=== PATIENT | female | born 1970 | race Caucasian/White ===

== ENCOUNTER 2016-07-29 10:32 | Observation (INO) | payer OTHER ==
[2016-07-29 11:07] LABS: COLOR YELLOW; LEUKOCYTE ESTERASE,URINE NEGATIVE (NEGATIVE); NITRITE,URINE NEGATIVE (NEGATIVE)
[2016-07-29] MEDS ORDERED: ONDANSETRON 4 MG/2 ML VIAL IVP ONE (11:11)
[2016-07-29] MEDS ORDERED: NS 1,000 ML IV ONE (11:11)
[2016-07-29] MEDS ORDERED: HYDROmorphONE/DILAUDID 1 MG/ML SYR IVP ONE ×2 (11:11→13:21)
[2016-07-29 11:17] LABS: BACTERIA 2+ /hpf (NONE SEEN); MUCUS 1+ /lpf (NONE-1+)
--- NOTE | 2016-07-29 11:17 | UCPHY ---
H & P Time Seen by Provider: 07/29/16 11:03 Patient Type: Established HPI/ROS: HPI Right flank pain. 45-year-old female by private vehicle. History of kidney stones. She reports she recently had a large right-sided ureteral stone. She underwent lithotripsy on July 08 and stent placement. She then had the stent removed on July 19. She reports that she has been passing a lot of kidney stone debris in her urine since the stent removal. She reports that she has been prescribed oxycodone for intermittent pain which she describes as coming on in waves. She reports however that since last night she has not been able to urinate well in her right flank pain with radiation to the right lower quadrant has been substantially worse. Her care has been through [facility]. ROS: Constitutional: No fever, no chills. No weakness. Eyes: No discharge. No changes in vision. ENT: No sore throat. No nasal congestion or rhinorrhea. Respiratory: No cough. No shortness of breath. Cardiac: No chest pain, no palpitations. Gastrointestinal: No as above, no vomiting, no diarrhea. Genitourinary: No hematuria. No dysuria or increased frequency with urination. Musculoskeletal: As above. No neck pain. No myalgias or arthralgias. Skin: No rashes. Neurological: No headache. No focal weakness or altered sensation. Past medical history: Kidney stones. As above. Social history: Here by herself. Physical Exam: General Appearance: Alert, she appears uncomfortable. This patient is responding to questions appropriately and in full sentences. This patient appears well-hydrated and well-nourished. Eyes: Pupils equal and round no pallor or injection. No lid edema, erythema or injection. Respiratory: There are no retractions, lungs are clear to auscultation with good air movement bilaterally. Cardiovascular: Regular rate and rhythm. No murmur. Gastrointestinal: Abdomen is soft with mild and vague right lower quadrant tenderness on palpation, no masses, bowel sounds normal. No focal tenderness at McBurney's point. No Snyder sign. Neurological: Motor sensory function is grossly intact. Cranial nerves are normal. Gait is normal. Skin: Warm and dry, no rashes. Musculoskeletal: Vague right-sided CVA tenderness on palpation. No left-sided CVA tenderness on palpation. Extremities are symmetrical. All joints range without pain or impingement. Psychiatric: No agitation. No depression. Database: EKG: Imaging: CT scan of the abdomen and pelvis without contrast: Significant for a 3 mm x 5 mm x 5 mm distal right ureteral stone at the UVJ. She has severe hydroureter and hydronephrosis with perinephric fluid and nephromegaly. Results were discussed with staff radiologist Dr. Tyson Thomson. Procedures: Emergency department course: IV placed. She was placed on a monitor. She was started on IV normal saline with 1 L to be given over the next hour. She was initially given 0.5 mg of IV hydromorphone and 4 mg of IV Zofran. He will be sent for noncontrast CT scan of the abdomen and pelvis to evaluate for new ureterolithiasis as, significant hydronephrosis as well as possible appendicitis. She endorses. The patient has required multiple doses of IV hydromorphone for pain control during her Urgent Care evaluation. 12:40 p.m. she was re-evaluated. She is asking for another dose of pain medication. Results of CT scan discussed with her. I will admit her to the hospitalist service and get in touch with her urologist to consult. 1:30 p.m., spoke with hospitalist, Dr. Bety Mitchell, patient accepted for admission. Urology has been paged. 1:35 p.m., spoke with on-call [facility], Dr. Makayla Ford. Case discussed in detail. He pulled her record. Here 1 of his partners will consult on this patient for management of this distal right-sided ureteral stone. 1:40 p.m., plan discussed with the patient and friend who was in the room. She does not want to go by ambulance. I think this is reasonable. Her friend will drive her over to [facility] where she will be admitted on arrival. Differential Diagnosis: The differential diagnosis on this patient includes but is not limited to ureterolithiasis, pyelonephritis, urinary tract infection, appendicitis. This represents a partial list of diagnoses considered. These considerations are based on history, physical exam, past history, reassessment and diagnostic testing. Smoking Status: Current every day smoker Constitutional: Initial Vital Signs Temperature (C) 36.4 C 07/29/16 10:48 Heart Rate 80 07/29/16 10:48 Respiratory Rate 16 07/29/16 10:48 Blood Pressure 126/78 H 07/29/16 10:48 O2 Sat (%) 96 07/29/16 10:48 O2 Delivery Mode Room Air Allergies/Adverse Reactions: Tetracyclines Allergy (Verified 07/29/16 10:47) Home Medications: Medication Instructions Recorded Percocet 5-325 mg Tablet 07/29/16 Xanax 07/29/16 Medical Decision Making - Data Points Laboratory Results: Laboratory Results 07/29/16 11:55 07/29/16 11:55 07/29/16 07/29/16 07/29/16 11:55 11:55 11:00 WBC 13.18 10^3/uL H 10^3/uL (3.80-9.50) RBC 4.45 10^6/uL 10^6/uL (4.18-5.33) Hgb 13.9 g/dL g/dL (12.6-16.3) Hct 41.0 % % (38.0-47.0) MCV 92.1 fL fL (81.5-99.8) MCH 31.2 pg pg (27.9-34.1) MCHC 33.9 g/dL g/dL (32.4-36.7) RDW 12.1 % % (11.5-15.2) Plt Count 291 10^3/uL 10^3/uL (150-400) MPV 10.5 fL fL (8.7-11.7) Neut % (Auto) 81.8 % H % (39.3-74.2) Lymph % (Auto) 11.9 % L % (15.0-45.0) Carver % (Auto) 5.2 % % (4.5-13.0) Eos % (Auto) 0.2 % L % (0.6-7.6) Baso % (Auto) 0.5 % % (0.3-1.7) Nucleat RBC Rel Count 0.0 % % (0.0-0.2) Absolute Neuts (auto) 10.78 10^3/uL H 10^3/uL (1.70-6.50) Absolute Lymphs (auto) 1.57 10^3/uL 10^3/uL (1.00-3.00) Absolute Monos (auto) 0.69 10^3/uL 10^3/uL (0.30-0.80) Absolute Eos (auto) 0.02 10^3/uL L 10^3/uL (0.03-0.40) Absolute Basos (auto) 0.07 10^3/uL 10^3/uL (0.02-0.10) Absolute Nucleated RBC 0.00 10^3/uL 10^3/uL (0-0.01) Immature Gran % 0.4 % % (0.0-1.1) Immature Gran # 0.05 10^3/uL 10^3/uL (0.00-0.10) Sodium 140 mEq/L mEq/L (134-144) Potassium 4.1 mEq/L mEq/L (3.5-5.2) Chloride 100 mEq/L mEq/L (97-110) Carbon Dioxide 26 mEq/l mEq/l (22-31) Anion Gap 14 mEq/L mEq/L (8-16) BUN 16 mg/dL mg/dL (7-23) Creatinine 0.8 mg/dL mg/dL (0.6-1.0) Estimated GFR > 60 Glucose 105 mg/dL H mg/dL (70-100) Calcium 9.5 mg/dL mg/dL (8.5-10.4) Urine Color Urine Appearance Urine pH Ur Specific [place] Urine Protein Urine Ketones Urine Blood Urine Nitrate Urine Bilirubin Urine Urobilinogen Ur Leukocyte Esterase Urine RBC Urine WBC Ur Epithelial Cells Urine Bacteria Urine Mucus Ur Culture Indicated? Urine Glucose Urine Test NEGATIVE 07/29/16 11:00 WBC RBC Hgb Hct MCV MCH MCHC RDW Plt Count MPV Neut % (Auto) Lymph % (Auto) Carver % (Auto) Eos % (Auto) Baso % (Auto) Nucleat RBC Rel Count Absolute Neuts (auto) Absolute Lymphs (auto) Absolute Monos (auto) Absolute Eos (auto) Absolute Basos (auto) Absolute Nucleated RBC Immature Gran % Immature Gran # Sodium Potassium Chloride Carbon Dioxide Anion Gap BUN Creatinine Estimated GFR Glucose Calcium Urine Color YELLOW Urine Appearance CLEAR Urine pH 5.0 (5.0-7.5) Ur Specific [place] 1.025 (1.002-1.030) Urine Protein NEGATIVE (NEGATIVE) Urine Ketones NEGATIVE (NEGATIVE) Urine Blood 2+ H (NEGATIVE) Urine Nitrate NEGATIVE (NEGATIVE) Urine Bilirubin NEGATIVE (NEGATIVE) Urine Urobilinogen 0.2 EU EU (0.2-1.0) Ur Leukocyte Esterase NEGATIVE (NEGATIVE) Urine RBC 5-10 /hpf H /hpf (0-3) Urine WBC 5-10 /hpf H /hpf (0-3) Ur Epithelial Cells 2+ /lpf H /lpf (NONE-1+) Urine Bacteria 2+ /hpf H /hpf (NONE SEEN) Urine Mucus 1+ /lpf /lpf (NONE-1+) Ur Culture Indicated? INDICATED H (NI) Urine Glucose NEGATIVE (NEGATIVE) Urine Test Medications Given: Discontinued Medications Hydromorphone HCl (Dilaudid) 0.5 mg IVP EDNOW ONE Stop: 07/29/16 11:12 Last Admin: 07/29/16 11:51 Dose: 0.5 mg Hydromorphone HCl (Dilaudid) 0.5 mg IVP EDNOW ONE Stop: 07/29/16 13:22 Last Admin: 07/29/16 13:30 Dose: 0.5 mg Sodium Chloride (Ns) 1,000 mls @ 0 mls/hr IV ONCE ONE PRN Reason: Wide Open Stop: 07/29/16 11:12 Last Admin: 07/29/16 12:00 Dose: 1,000 mls Ondansetron HCl (Zofran) 4 mg IVP EDNOW ONE Stop: 07/29/16 11:12 Last Admin: 07/29/16 11:50 Dose: 4 mg Ondansetron HCl (Zofran) 4 mg IVP EDNOW ONE Stop: 07/29/16 13:36 Last Admin: 07/29/16 13:36 Dose: 4 mg Departure - Departure Disposition: Home, Routine, Self-Care Clinical Impression: Right flank pain, History of kidney stones, Right kidney stone with obstruction - PQRS PQRS Measurement: Not applicable.
[2016-07-29 12:00] LABS: % IMMATURE GRANULYOCYTES 0.4 % (0.0-1.1); ABSOLUTE IMMATURE GRANULOCYTES 0.05 10^3/uL (0.00-0.10); ADD DIFF? NO; ADD MORPH? NO; ADD SCAN? NO; ATYPICAL LYMPHOCYTE FLAG 0 (0-99); FRAGMENT RBC FLAG 0 (0-99); HEMOGLOBIN 13.9 g/dL (12.6-16.3); LEFT SHIFT FLG 0 (0-99); LIPEMIA HEMOLYSIS FLAG 90 (0-99); MEAN CELL HEMOGLOBIN 31.2 pg (27.9-34.1); MEAN CELL HEMOGLOBIN CONCENTR. 33.9 g/dL (32.4-36.7); MEAN CELL VOLUME 92.1 fL (81.5-99.8); MEAN PLATELET VOLUME 10.5 fL (8.7-11.7); PLATELET CLUMPS FLAG 10 (0-99); PLATELET COUNT 291 10^3/uL (150-400); RED BLOOD CELL COUNT 4.45 10^6/uL (4.18-5.33); RED CELL DISTRIBUTION WIDTH 12.1 % (11.5-15.2)
[2016-07-29 12:14] LABS: ANION GAP 14 mEq/L (8-16); CALCIUM 9.5 mg/dL (8.5-10.4); CARBON DIOXIDE 26 mEq/l (22-31); CHLORIDE 100 mEq/L (97-110); CREATININE 0.8 mg/dL (0.6-1.0); GLOMERULAR FILTRATION RATE > 60; GLUCOSE 105 mg/dL (70-100); POTASSIUM 4.1 mEq/L (3.5-5.2); SODIUM 140 mEq/L (134-144)
[2016-07-29] MEDS ORDERED: ONDANSETRON 4 MG/2 ML VIAL ONE (13:32)
[2016-07-29] MEDS: ONDANSETRON 4 MG/2 ML VIAL IVP ONE (13:36)
[2016-07-29] MEDS: NS 1,000 ML IV SCH ×2 (13:46→18:38)
--- NOTE | 2016-07-29 15:44 | PDGENHP ---
History and Physical - Chief Complaint RLQ and flank pain - History of Present Illness 45 yo female with h/o nephrolithiasis, s/p lithotripsy 07/08/2016 with stent placement and subsequent stent removal 06/2016, presented to urgent care with worsening right flank pain and RLQ pain. No fevers or chills. No N/V/D. She reports difficulty with urination since yesterday. In urgent care, CT revealed an obstructing distal right ureteral stone with severe upstream hydronephrosis. She received a total of 1 mg IV dilaudid and 2 doses of IV Zofran. She is admitted to the hospital for further management. History Information - Allergies/Home Medication List Allergies/Adverse Reactions: Tetracyclines Allergy (Verified 07/29/16 10:47) Home Medications: NK [No Known Home Meds] 07/29/16 [Last Taken Unknown] I have personally reviewed and updated: family history, medical history, social history, surgical history - Past Medical History Additional medical history: nephrolithiasis - Surgical History Additional surgical history: lithotripsy 07/08/2016 - Family History Positive for: non-pertinent - Social History Smoking Status: Current every day smoker Review of Systems ROS: 10pt was reviewed & negative except for what was stated in HPI & below Physical Exam Temp Pulse Resp BP Pulse Ox 36.4 C 63 16 112/80 94 07/29/16 10:48 07/29/16 14:45 07/29/16 14:45 07/29/16 14:45 07/29/16 14:45 Constitutional: no apparent distress Eyes: PERRL Ears, Nose, Mouth, Throat: moist mucous membranes Cardiovascular: regular rate and rhythym, no murmur, rub, or gallop Respiratory: no respiratory distress, clear to auscultation Gastrointestinal: normoactive bowel sounds, soft, non-tender abdomen Skin: warm Musculoskeletal: full muscle strength Neurologic: AAOx3 Psychiatric: interacting appropriately Lab Data & Imaging Review 07/29/16 11:55 07/29/16 11:55 WBC 13.18 10^3/uL (3.80-9.50) H 07/29/16 11:55 RBC 4.45 10^6/uL (4.18-5.33) 07/29/16 11:55 Hgb 13.9 g/dL (12.6-16.3) 07/29/16 11:55 Hct 41.0 % (38.0-47.0) 07/29/16 11:55 MCV 92.1 fL (81.5-99.8) 07/29/16 11:55 MCH 31.2 pg (27.9-34.1) 07/29/16 11:55 MCHC 33.9 g/dL (32.4-36.7) 07/29/16 11:55 RDW 12.1 % (11.5-15.2) 07/29/16 11:55 Plt Count 291 10^3/uL (150-400) 07/29/16 11:55 MPV 10.5 fL (8.7-11.7) 07/29/16 11:55 Neut % (Auto) 81.8 % (39.3-74.2) H 07/29/16 11:55 Lymph % (Auto) 11.9 % (15.0-45.0) L 07/29/16 11:55 Love % (Auto) 5.2 % (4.5-13.0) 07/29/16 11:55 Eos % (Auto) 0.2 % (0.6-7.6) L 07/29/16 11:55 Baso % (Auto) 0.5 % (0.3-1.7) 07/29/16 11:55 Nucleat RBC Rel Count 0.0 % (0.0-0.2) 07/29/16 11:55 Absolute Neuts (auto) 10.78 10^3/uL (1.70-6.50) H 07/29/16 11:55 Absolute Lymphs (auto) 1.57 10^3/uL (1.00-3.00) 07/29/16 11:55 Absolute Monos (auto) 0.69 10^3/uL (0.30-0.80) 07/29/16 11:55 Absolute Eos (auto) 0.02 10^3/uL (0.03-0.40) L 07/29/16 11:55 Absolute Basos (auto) 0.07 10^3/uL (0.02-0.10) 07/29/16 11:55 Absolute Nucleated RBC 0.00 10^3/uL (0-0.01) 07/29/16 11:55 Immature Gran % 0.4 % (0.0-1.1) 07/29/16 11:55 Immature Gran # 0.05 10^3/uL (0.00-0.10) 07/29/16 11:55 Sodium 140 mEq/L (134-144) 07/29/16 11:55 Potassium 4.1 mEq/L (3.5-5.2) 07/29/16 11:55 Chloride 100 mEq/L (97-110) 07/29/16 11:55 Carbon Dioxide 26 mEq/l (22-31) 07/29/16 11:55 Anion Gap 14 mEq/L (8-16) 07/29/16 11:55 BUN 16 mg/dL (7-23) 07/29/16 11:55 Creatinine 0.8 mg/dL (0.6-1.0) 07/29/16 11:55 Estimated GFR > 60 07/29/16 11:55 Glucose 105 mg/dL (70-100) H 07/29/16 11:55 Calcium 9.5 mg/dL (8.5-10.4) 07/29/16 11:55 Urine Color YELLOW 07/29/16 11:00 Urine Appearance CLEAR 07/29/16 11:00 Urine pH 5.0 (5.0-7.5) 07/29/16 11:00 Ur Specific [place] 1.025 (1.002-1.030) 07/29/16 11:00 Urine Protein NEGATIVE (NEGATIVE) 07/29/16 11:00 Urine Ketones NEGATIVE (NEGATIVE) 07/29/16 11:00 Urine Blood 2+ (NEGATIVE) H 07/29/16 11:00 Urine Nitrate NEGATIVE (NEGATIVE) 07/29/16 11:00 Urine Bilirubin NEGATIVE (NEGATIVE) 07/29/16 11:00 Urine Urobilinogen 0.2 EU (0.2-1.0) 07/29/16 11:00 Ur Leukocyte Esterase NEGATIVE (NEGATIVE) 07/29/16 11:00 Urine RBC 5-10 /hpf (0-3) H 07/29/16 11:00 Urine WBC 5-10 /hpf (0-3) H 07/29/16 11:00 Ur Epithelial Cells 2+ /lpf (NONE-1+) H 07/29/16 11:00 Urine Bacteria 2+ /hpf (NONE SEEN) H 07/29/16 11:00 Urine Mucus 1+ /lpf (NONE-1+) 07/29/16 11:00 Ur Culture Indicated? INDICATED (NI) H 07/29/16 11:00 Urine Glucose NEGATIVE (NEGATIVE) 07/29/16 11:00 Urine Test NEGATIVE 07/29/16 11:00 Assessment & Plan Assessment: Obstructing nephrolithiasis with severe right hydronephrosis - S/P prior lithotripsy 07/18 with stent removal on 07/19. No fevers, UA with minimal wbc's. Will watch closely and start atbx if she develops fevers or signs of infection. UCx pending. Urology is consulted, plans for intervention tomorrow. Will make NPO at midnight. Pain control in meantime. Full code Dispo - obs, may need to change to inpt should she develop infection or has post -op issues requiring extended hospitalization
--- NOTE | 2016-07-29 17:34 | SOAPPROG ---
SOAP Progress Note Assessment/Plan: Assessment: Right flank pain Acute History of kidney stones Acute Reviewed hx and CAT scan and noted right hydronephrosis and distal 3 x 5 mm stone. Plan for removal in AM. Pt to eat now and NPO past MN Plan:ureteroscopy in AM 07/29/16 17:34 Subjective: admitted with right hydronephrosis and distal stone Objective: Vital Signs Temp Pulse Resp BP Pulse Ox 36.6 C 62 16 116/75 99 07/29/16 16:18 07/29/16 16:18 07/29/16 16:18 07/29/16 16:18 07/29/16 16:18 07/28/16 07/29/16 07/30/16 05:59 05:59 05:59 Intake Total 1200 Balance 1200 Physical Exam - Physical Exam General Appearance: other (as per admit h and p, pt not seen -- discussed with RN caring for pt) ICD10 Worksheet Patient Problems: Problems Problem Status Onset Right flank pain Acute History of kidney stones Acute
[2016-07-29] MEDS ORDERED: ACETAMINOPHEN 325 MG TAB PO PRN (17:50)
[2016-07-29] MEDS ORDERED: ONDANSETRON 4 MG/2 ML VIAL IVP PRN (17:50)
[2016-07-29] MEDS ORDERED: PROMETHAZINE HCL 25 MG/ML INJ IVP PRN (17:50)
[2016-07-29] MEDS ORDERED: PROMETHAZINE HCL 25 MG TAB PO PRN (17:50)
[2016-07-29] MEDS ORDERED: ONDANSETRON DISINTEGRATING 4 MG TAB PO PRN (17:50)
[2016-07-29] MEDS ORDERED: HYDROmorphONE/DILAUDID 1 MG/ML SYR IVP PRN (17:50)
[2016-07-29] MEDS ORDERED: LORazepam 1 MG TAB PO PRN (17:52)
[2016-07-29] MEDS ORDERED: NICOTINE 14 MG/24 HR PATCH TD PRN (18:09)
[2016-07-29] MEDS: oxyCODONE IR 5 MG TAB PO PRN ×2 (18:21→22:32)
[2016-07-29] MEDS: TAMSULOSIN HCL 0.4 MG CAP PO SCH (18:22)
[2016-07-29] MEDS: KETOROLAC 30 MG/1 ML SDV IVP PRN (18:22)
[2016-07-30] MEDS ORDERED: NS 1,000 ML IV SCH (00:02)
[2016-07-30] MEDS: KETOROLAC 30 MG/1 ML SDV IVP PRN (05:14)
[2016-07-30 05:32] LABS: % IMMATURE GRANULYOCYTES 0.2 % (0.0-1.1); ABSOLUTE IMMATURE GRANULOCYTES 0.01 10^3/uL (0.00-0.10); ADD DIFF? NO; ADD MORPH? NO; ADD SCAN? NO; ATYPICAL LYMPHOCYTE FLAG 0 (0-99); FRAGMENT RBC FLAG 0 (0-99); HEMATOCRIT 36.5 % (38.0-47.0); HEMOGLOBIN 12.2 g/dL (12.6-16.3); LEFT SHIFT FLG 0 (0-99); LIPEMIA HEMOLYSIS FLAG 80 (0-99); MEAN CELL HEMOGLOBIN 31.4 pg (27.9-34.1); MEAN CELL HEMOGLOBIN CONCENTR. 33.4 g/dL (32.4-36.7); MEAN CELL VOLUME 94.1 fL (81.5-99.8); PLATELET CLUMPS FLAG 0 (0-99); PLATELET COUNT 216 10^3/uL (150-400); RED BLOOD CELL COUNT 3.88 10^6/uL (4.18-5.33); RED CELL DISTRIBUTION WIDTH 12.4 % (11.5-15.2)
[2016-07-30 05:53] LABS: ANION GAP 7 mEq/L (8-16); CALCIUM 8.8 mg/dL (8.5-10.4); CARBON DIOXIDE 24 mEq/l (22-31); CHLORIDE 108 mEq/L (97-110); CREATININE 0.8 mg/dL (0.6-1.0); GLOMERULAR FILTRATION RATE > 60; GLUCOSE 80 mg/dL (70-100); POTASSIUM 4.2 mEq/L (3.5-5.2); SODIUM 139 mEq/L (134-144)
[2016-07-30] MEDS ORDERED: LIDOCAINE 2% JELLY 20 ML (UROJECT) ONE (06:58)
[2016-07-30] MEDS ORDERED: IOPAMIDOL (ISOVUE-M 300) 15 ML VIAL IV ONE (06:59)
[2016-07-30] MEDS ORDERED: MIDAZOLAM 2 MG/2 ML VIAL ONE (07:29)
[2016-07-30] MEDS ORDERED: ceFAZolin 2 GM/DEXTROSE 100 ML IV ONE (07:30)
[2016-07-30] MEDS ORDERED: PROPOFOL 200 MG/20 ML VIAL ONE (07:40)
[2016-07-30] MEDS ORDERED: fentaNYL 100 MCG/2 ML INJ ONE (07:40)
--- NOTE | 2016-07-30 08:32 | POSTOPPROG ---
Post Op Note Date of Operation: 07/30/16 Surgeon: Jan Montes Anesthesiologist: Warm Anesthesia: LMA Pre-op Diagnosis: stone hydronephrosis dictated Inf/Abcess present in the surg proc area at time of surgery?: No Specimen(s): stone given to pt
--- NOTE | 2016-07-30 08:42 | GCON ---
I have been asked by Bety Mitchell, the admitting physician, to see this lady for a right ureteral c alculus and hydronephrosis. HISTORY OF PRESENT ILLNESS: This is a 45-year-old lady who recently underwent lithotripsy on 2016 and had a stent removed and then subsequently had pain but presented to the emergency room gina use of unrelenting flank pain and was admitted to the hospital for pain control. I have reviewed he r CAT scan. The CAT scan reveals a 3 x 5 mm stone in the distal ureter with upstream significant hy dronephrosis. She has been on Dilaudid and Zofran, and overnight she had less pain and discomfort. At the present time, she has been admitted for hydration and pain control; and after reviewing her CAT scan and discussing it with her, she is to undergo ureteroscopic removal of the calculus. ALLERGIES: She is allergic to tetracyclines. MEDICATIONS: No known medications. REVIEW OF SYSTEMS: Negative for cardiac, respiratory, GI, and endocrine. She is perimenopausal and has had altered changes in her menstrual cycle, and then she has had the right flank pain and being admitted for that. She has had no fever or chills. PHYSICAL EXAM: GENERAL: She is alert and oriented. NECK: She has a normal supple neck. LUNGS: Respirations unlabored. HEART: Regular rate and rhythm. ABDOMEN: No organomegaly, rebound, or gu arding. She does have the right flank pain and urgency to void. SKIN: Warm. MUSCULOSKELETAL: Fu ll muscle strength. NEUROLOGIC: Oriented x3, alert, and active. PSYCHIATRIC: Appropriate interac tion. LAB FINDINGS: Labs have been reviewed. She had a creatinine of 0.8, BUN of 16, glucose 105, sodium 140, potassium 4.1. ASSESSMENT AND PLAN: At the present time, she has been admitted and she is to undergo ureteroscopic removal of the calculus. I have discussed this with her, reviewed her x-rays, and there has been a total of 30 minutes in pre-assessment and patient interaction time for this visit. /[id number]/MODL
[2016-07-30 08:47] VITALS: BP 90/61
[2016-07-30 08:50] VITALS: PULSE 90; RESP 16; TEMP 97.9; O2SAT 94
--- NOTE | 2016-07-30 09:02 | GOP ---
DATE OF OPERATION: 07/29/2016 SURGEON: Jan Montes MD PREOPERATIVE DIAGNOSIS: Right ureteral stone with hydronephrosis. POSTOPERATIVE DIAGNOSIS: Right ureteral stone with hydronephrosis. PROCEDURE PERFORMED: Cystoscopy retrograde ureteral pyelogram, right, and ureteroscopic removal of calculus, and fluoroscopy with interpretation. FINDINGS: DESCRIPTION OF PROCEDURE: The patient underwent general anesthesia. After appropriate time-out, an d being prepped and draped in normal sterile fashion, the right ureter was cannulated with a Pollack catheter. Retrograde revealed the distal ureteral stone with hydronephrosis and hydroureter. I co uld pass the scope up to the stone and grasp it with a stone basket, and gently teased it out of the ureter, and then visualized the rest of the kidney and looked all the way up into the renal pelvis. No residual stones or trauma. At the patient's request to avoid a stent, we elected to do that. I had placed some Xylocaine up in the ureter with a Pollack catheter. I then placed a Uro-jet in th e bladder, after emptying the bladder. She tolerated the procedure well. She will be discharged ho nd, the have followup with me in the future. The stone will be given to her for viewing. /[id number]/MODL
[2016-07-30] MEDS: TAMSULOSIN HCL 0.4 MG CAP PO SCH (12:41)
--- NOTE | 2016-07-30 14:53 | GDS ---
STUDIES AND PROCEDURES DONE: 1. CT of the abdomen and pelvis. 2. Cystoscopy with ureteral pyelogram and removal of calculus. CONSULTATIONS: Dr. Montes of Urology. PHYSICAL EXAM: GENERAL: The patient is alert. VITAL SIGNS: Afebrile 36.6, pulse is 90, respirato ry rate 16, blood pressure is 90/61, she is saturating 94% on room air. I have seen and evaluated t he patient on the day of discharge. HOSPITAL COURSE: Ms. Rios is a 45-year-old female, who has a history of renal calculi. She prese nted to the emergency room with complaints of pain. She was evaluated and diagnosed with right uret eral calculi and hydronephrosis. During this hospitalization, she was evaluated by Dr. Montes. A cy stoscopy was performed and the removal of the calculus was completed. The patient has responded wel l in the postoperative setting. She is tolerating a regular diet. Her pain is controlled. She joann l be discharged home to follow up with Dr. Montes in the outpatient setting. There are no pending st udies. DISCHARGE MEDICATIONS: Please refer to EMR form. I have not provided the patient any prescriptions at the time of disposition. /[id number]/MODL
== END 2016-07-30 12:43 | disposition home or self-care (01) ==
LOC: CED 10:32 → INTOOBSV 13:31 → CEDHOLD 13:31 → F3N 17:03
PROVIDERS: ADMIT Hospitalist; ATTEND Hospitalist
PROC: 0TC68ZZ Extirpation of Matter from Right Ureter, Via Natural or Artificial Opening Endoscopic (ICD-10-PCS; principal; 2016-07-29)
DX: N13.1 Hydronephrosis with ureteral stricture, not elsewhere classified (principal); J44.9 Chronic obstructive pulmonary disease, unspecified; Z72.0 Tobacco use; Z87.442 Personal history of urinary calculi
CPT/HCPCS: 52352; 74176; 76001; 96361; 96374; 96375; 96376; 99213; C1758; C1769; G0378; 80048-PO; 81003-PO; 81015-PO; 81025-PO; 85025-PO; 99215-PO; G0463-PO; J0690; J0696; J1170; J1885; J2250; J2405; J2704; J3010; Q9967